=== PATIENT | female | born 1985 | race Caucasian/White ===

== ENCOUNTER 2019-08-28 08:56 | Emergency (ER) | payer MEDICAID ==
[~2019-08-28] VITALS: Ht 165.1 cm; Wt 43.1 kg
[2019-08-28 09:07] VITALS: BP 101/66
--- NOTE | 2019-08-28 09:10 | NUR ---
ED Nurse Note: Patient brought in to ER by ambulance from home due to general weakness. per pt, her Sodium might be low. she got checked at the hospital on Thursday and it was 126. she feels weaker so called 911. Patient alert and oriented x4 and bedridden at this moment due to weakness. skin clean and intact. Calm and cooperative. No acute distress noted at this time. pt has anorexia and noted to be underweight.
--- NOTE | 2019-08-28 09:11 | NUR ---
ED Nurse Note: pt ambulated to bathroom with steady gait.
--- NOTE | 2019-08-28 09:15 | NUR ---
ED Nurse Note: pt was told to collect urine sample in the cup. however, she forgot. will wait for pt to urinate again.
[2019-08-28 09:35] LABS: BASOPHILS % (AUTO) 2.7 % (0.0-2.0); EOSINOPHILS % (AUTO) 3.6 % (0.0-3.0); HEMATOCRIT 40.9 % (37.0-47.0); LYMPHOCYTES % (AUTO) 40.9 % (20.0-45.0); MEAN CORPUSCULAR VOLUME 91 FL (80-99); MONOCYTES % (AUTO) 13.8 % (1.0-10.0); PLATELET COUNT 379 K/UL (150-450); RED BLOOD COUNT 4.48 M/UL (4.20-5.40); RED CELL DISTRIBUTION WIDTH 16.5 % (11.6-14.8); WHITE BLOOD COUNT 3.5 K/UL (4.8-10.8)
--- NOTE | 2019-08-28 09:36 | Emergency Room Report ---
History of Present Illness General Chief Complaint: Generalized Weakness Source: Patient Present Illness HPI Patient is a 34-year-old female who presents after increased generalized weakness. She reports having some prior history of an eating disorder. She states she has had continued nausea. She reports having generalized weakness. She denies vomiting. She reports having a prior history of anorexia and has been having some improvement after it with eating. She takes only Lexapro and Fosamax. She states she is recently had low sodiums on laboratory testing. She denies any vomiting or diarrhea. Allergies: Coded Allergies: No Known Allergies (Unverified , 08/28/19) Patient History Past Medical History: see triage record Last Menstrual Period: 5 yrs ago Reviewed Nursing Documentation: PMH: Agreed; PSxH: Agreed Nursing Documentation-PMH Past Medical History: No Stated History Review of Systems All Other Systems: negative except mentioned in HPI Physical Exam Vital Signs Date Time Temp Pulse Resp B/P (MAP) Pulse Ox O2 Delivery O2 Flow Rate FiO2 08/28/19 08:56 98.1 64 18 101/66 (78) 99 Room Air Sp02 EP Interpretation: reviewed, normal General Appearance: normal inspection, well appearing, no apparent distress, alert, GCS 15, thin, Chronically Ill Head: atraumatic ENT: normal ENT inspection, hearing grossly normal, normal voice Neck: normal inspection, full range of motion, supple, no bony tend Respiratory: normal inspection, lungs clear, normal breath sounds, no respiratory distress, no retraction, no wheezing Cardiovascular #1: regular rate, rhythm, no edema Gastrointestinal: normal inspection, normal bowel sounds, non tender, soft, no guarding, no hernia Genitourinary: no CVA tenderness Musculoskeletal: normal inspection, back normal, normal range of motion Neurologic: normal inspection, alert, oriented x3, responsive, green tire inspector III-XII nml as tested, speech normal Psychiatric: normal inspection, judgement/insight normal, mood/affect normal Medical Decision Making Diagnostic Impression: Primary Impression: Hyponatremia ER Course Patient presented for generalized weakness. Differential diagnosis include was not limited to hyponatremia, hyperglycemia, electrolyte abnormalities among others. Dehydration. per patient's history patient was noted to have chronic electrolyte abnormalities due to anorexia. She had recent hospitalization for which she had hyponatremia with sodium of 126. Patient had previously was treated to receive treatment which included fluid restriction. She states on prior hospitalization she received 1 bag of saline which corrected abnormalities. She was given normal saline 1 bag IV. Patient was to follow-up with her primary care physician for recheck of labs. I discussed the patient's case with her primary care physician coverage Dr. Vang. Patient agreed to recheck her labs as an outpatient.Patient appears to be stable for outpatient management. She was advised continued outpatient fluid restriction and to slightly increased salt intake.Advised to return if worse. Labs Test 08/28/19 09:00 08/28/19 10:52 White Blood Count 3.5 K/UL (4.8-10.8) Red Blood Count 4.48 M/UL (4.20-5.40) Hemoglobin 13.0 G/DL (12.0-16.0) Hematocrit 40.9 % (37.0-47.0) Mean Corpuscular Volume 91 FL (80-99) Mean Corpuscular Hemoglobin 28.9 PG (27.0-31.0) Mean Corpuscular Hemoglobin Concent 31.7 G/DL (32.0-36.0) Red Cell Distribution Width 16.5 % (11.6-14.8) Platelet Count 379 K/UL (150-450) Mean Platelet Volume 5.3 FL (6.5-10.1) Neutrophils (%) (Auto) 39.0 % (45.0-75.0) Lymphocytes (%) (Auto) 40.9 % (20.0-45.0) Monocytes (%) (Auto) 13.8 % (1.0-10.0) Eosinophils (%) (Auto) 3.6 % (0.0-3.0) Basophils (%) (Auto) 2.7 % (0.0-2.0) Sodium Level 128 MMOL/L (136-145) Potassium Level 4.3 MMOL/L (3.5-5.1) Chloride Level 94 MMOL/L (98-107) Carbon Dioxide Level 29 MMOL/L (21-32) Anion Gap 5 mmol/L (5-15) Blood Urea Nitrogen 3 mg/dL (7-18) Creatinine 0.6 MG/DL (0.55-1.30) Estimat Glomerular Filtration Rate > 60 mL/min (>60) Glucose Level 132 MG/DL (74-106) Calcium Level 9.0 MG/DL (8.5-10.1) Total Bilirubin 0.3 MG/DL (0.2-1.0) Aspartate Amino Transf (AST/SGOT) 31 U/L (15-37) Alanine Aminotransferase (ALT/SGPT) 42 U/L (12-78) Alkaline Phosphatase 122 U/L (46-116) Total Protein 6.7 G/DL (6.4-8.2) Albumin 3.5 G/DL (3.4-5.0) Globulin 3.2 g/dL Albumin/Globulin Ratio 1.1 (1.0-2.7) Thyroid Stimulating Hormone (TSH) 3.787 uiU/mL (0.358-3.740) Urine Color Pale yellow Urine Appearance Clear Urine pH 8 (4.5-8.0) Urine Specific [place] 1.010 (1.005-1.035) Urine Protein Negative (NEGATIVE) Urine Glucose (UA) Negative (NEGATIVE) Urine Ketones Negative (NEGATIVE) Urine Blood Negative (NEGATIVE) Urine Nitrite Negative (NEGATIVE) Urine Bilirubin Negative (NEGATIVE) Urine Urobilinogen Normal MG/DL (0.0-1.0) Urine Leukocyte Esterase Negative (NEGATIVE) Urine Random Sodium 47 mmol/L (20-110) Urine HCG, Qualitative Negative (NEGATIVE) EKG Diagnostic Results Rate: normal Rhythm: NSR ST Segments: other - incomplete RBBB Last Vital Signs Date Time Temp Pulse Resp B/P (MAP) Pulse Ox O2 Delivery O2 Flow Rate FiO2 08/28/19 09:07 98.1 64 18 101/66 99 Room Air Status: improved Disposition: HOME, SELF-CARE Condition: Stable Scripts No Active Prescriptions or Reported [facility]Re[facility] Amezquita MD Aug 28, 2019 09:36
[2019-08-28 10:13] LABS: ANION GAP 5 mmol/L (5-15); BLOOD UREA NITROGEN 3 mg/dL (7-18); CARBON DIOXIDE 29 MMOL/L (21-32); CHLORIDE 94 MMOL/L (98-107); CREATININE 0.6 MG/DL (0.55-1.30); POTASSIUM 4.3 MMOL/L (3.5-5.1); SODIUM 128 MMOL/L (136-145)
[2019-08-28 10:26] LABS: ALANINE AMINOTRANSFERASE 42 U/L (12-78); ALBUMIN 3.5 G/DL (3.4-5.0); ALBUMIN/GLOBULIN RATIO 1.1 (1.0-2.7); ALKALINE PHOSPHATASE 122 U/L (46-116); ASPARTATE AMINO TRANSFERASE 31 U/L (15-37); BILIRUBIN,TOTAL 0.3 MG/DL (0.2-1.0)
--- NOTE | 2019-08-28 10:39 | NUR ---
ED Nurse Note: ERMD at bedside speaking to pt and family about lab results.
--- NOTE | 2019-08-28 10:40 | NUR ---
ED Nurse Note: EKG at bedside by information systems technician.
--- NOTE | 2019-08-28 10:53 | NUR ---
ED Nurse Note: SILVESTRE speaking to pt and family again.
[2019-08-28 11:04] LABS: APPEARANCE,URINE CLEAR; BILIRUBIN, URINE NEGATIVE (NEGATIVE); COLOR,URINE PALE YELLOW; GLUCOSE, URINE (UA) NEGATIVE (NEGATIVE); KETONES,URINE NEGATIVE (NEGATIVE); LEUKOCYTE ESTERASE ,URINE NEGATIVE (NEGATIVE); NITRITE,URINE NEGATIVE (NEGATIVE); PH,URINE 8 (4.5-8.0); PROTEIN,URINE NEGATIVE (NEGATIVE); UROBILINOGEN,URINE NORMAL MG/DL (0.0-1.0)
[2019-08-28 11:35] VITALS: BP 103/81
--- NOTE | 2019-08-28 11:37 | NUR ---
ER DISCHARGE NOTE: Patient is cleared to be discharged per ERMD. D/C instruction given by Dr. Porras. Patient was able to verbalize understanding, ID band removed without complications. Patient is able to ambulate with steady gait with all her belongings.
--- NOTE | 2019-08-29 14:24 | Cardiology Report ---
APPROVED REPORT EKG Measurement Heart [id number] Sinus bradycardia Rightward axis Cannot rule out Anterior infarct, age undetermined Abnormal ECG
== END 2019-08-28 11:35 | disposition home or self-care (01) ==
LOC: EDBD 08:56 → EMR 09:30
DX: E87.1 Hypo-osmolality and hyponatremia (principal); E86.0 Dehydration; R63.0 Anorexia; Z68.1 Body mass index [BMI] 19.9 or less, adult; R00.1 Bradycardia, unspecified
CPT/HCPCS: 36415; 80053; 81003; 81025; 84300; 84443; 85025; 93005; Z7502; 99284